=== PATIENT | male | born 1945 | race Caucasian/White ===

== ENCOUNTER 2016-10-23 13:37 | Emergency (ER) | payer MEDICARE, OTHER ==
[2014-05-03 14:03] VITALS: BMI 39.8
[~2016-10-23 13:37] MED LIST: BETAPACE 120 M120 MG PO; GLIPIZIDE10 MG PO; GLUCOPHAGE500 MG PO; HYDROCHLOROTH12.5 M1 PO; PRINIVIL20 MG PO
[2016-10-23 14:15] LABS: BASOPHILS 0.3 % (0-2); EOSINOPHILS 2.6 % (0-7); HEMATOCRIT 48.7 % (42.0-54.0); IMMATURE GRANULOCYTES 0.5 % (0-5); LYMPHOCYTES 19.1 % (15-50); MCH 32.2 pg (26.0-34.0); MCHC 34.9 g/dL (31.0-37.0); MCV 92.2 fL (80.0-100.0); MEAN PLATELET VOLUME 11.5 fL (7.4-10.4); MONOCYTES 7.9 % (2-11); NEUTROPHILS 69.6 % (40-80); PLATELET COUNT 226 10x3/uL (130-400); RBC 5.28 10x6/uL (4.20-6.10); RDW 12.9 % (11.5-14.5); WBC 12.9 10x3/uL (4.8-10.8)
[2016-10-23 14:26] LABS: APTT 30.9 SECONDS (22.8-39.4); INR 0.99 (0.85-1.17); PROTIME 12.9 SECONDS (11.6-15.0)
[2016-10-23 14:32] LABS: ALBUMIN 3.7 g/dL (3.4-5.0); ALKALINE PHOSPHATASE 62 U/L (46-116); ALT (SGPT) 27 U/L (10-68); BILIRUBIN - TOTAL 0.33 mg/dL (0.2-1.3); CALC OSMOLALITY 285 mosm/kg (275-300); CALCIUM 9.2 mg/dL (8.5-10.1); CARBON DIOXIDE 27.1 mmol/L (21.0-32.0); CHLORIDE - SERUM 103 mmol/L (98-107); CREATININE - SERUM 1.4 mg/dL (0.6-1.3); GLUCOSE 216 mg/dL (74-106); PROTEIN - SERUM 7.8 g/dL (6.4-8.2); SODIUM 137 mmol/L (136-145); UREA NITROGEN 27 mg/dL (7-18); eGFR NON AFRICAN AMERICAN 53 mL/min (90-120)
[2016-10-23 14:41] LABS: CREATINE KINASE 60 UL (21-232); PRO BNP 1199 pg/mL (0-125)
[2016-10-23 14:45] LABS: TROPONIN-I < 0.017 ng/mL (0.000-0.060)
[2016-10-23 15:48] LABS: APPEARANCE CLEAR (CLEAR); COLOR YELLOW (YELLOW); GLUCOSE 100 mg/dL (NEGATIVE); LEUKOCYTE ESTERASE NEGATIVE (NEGATIVE); NITRITE NEGATIVE (NEGATIVE); PROTEIN TRACE mg/dL (NEGATIVE)
[2016-10-23 15:49] LABS: BILIRUBIN NEGATIVE (NEGATIVE); KETONE NEGATIVE (NEGATIVE); UROBILINOGEN NORMAL (NORMAL)
[2016-10-23 16:02] LABS: UDS - AMPHET NEGATIVE QUAL (NEGATIVE); UDS - BARB NEGATIVE QUAL (NEGATIVE); UDS - BENZO NEGATIVE QUAL (NEGATIVE); UDS - COCAINE NEGATIVE QUAL (NEGATIVE); UDS - METH NEGATIVE QUAL (NEGATIVE); UDS - OPIATE NEGATIVE QUAL (NEGATIVE); UDS - PCP NEGATIVE QUAL (NEGATIVE); UDS - THC NEGATIVE QUAL (NEGATIVE)
== END 2016-10-23 16:26 | disposition home or self-care (01) ==
LOC: D.ER 13:37
PROVIDERS: Emergency Medicine
DX: I48.92 Unspecified atrial flutter (principal); R53.83 Other fatigue; R06.02 Shortness of breath; R00.1 Bradycardia, unspecified

== ENCOUNTER → 2016-11-07 15:20 | Outpatient (CLI) | payer MEDICARE, OTHER ==
[2014-05-03 14:03] VITALS: BMI 39.8
== END | disposition home or self-care (01) ==
LOC: D.MRI 15:20
DX: M54.16 Radiculopathy, lumbar region (principal)

== ENCOUNTER → 2017-01-03 07:27 | Outpatient (CLI) | payer MEDICARE, OTHER ==
[2014-05-03 14:03] VITALS: BMI 39.8
[~2017-01-03 07:27] MED LIST changes: +ASPIRIN81 MG PO; +DITROPAN X5 MG/BOTTL PO; -HYDROCHLOROTH12.5 M1 PO; +HYDROCHLOROTHIA50 MG PO; +HYDROCODONE-APA1 TAB PO; +IBUPROFEN800 MG PO; +JENTADUETO 2.51 EAC1 PO; +NIACIN500 MG PO; +NORCO 7.5/325 T1 TA1 PO; +NORVASC10 MG PO
== END | disposition home or self-care (01) ==
LOC: D.US 07:27
DX: N19 Unspecified kidney failure (principal)

== ENCOUNTER 2017-01-17 05:33 | Day surgery (SDC) | payer MEDICARE, OTHER ==
[2017-01-16 08:56] LABS: HEMATOCRIT 42.7 % (42.0-54.0); HEMOGLOBIN 14.6 g/dL (13.5-17.5); MCH 31.5 pg (26.0-34.0); MCHC 34.2 g/dL (31.0-37.0); MCV 92.2 fL (80.0-100.0); MEAN PLATELET VOLUME 11.3 fL (7.4-10.4); RBC 4.63 10x6/uL (4.20-6.10); RDW 13.2 % (11.5-14.5); WBC 13.5 10x3/uL (4.8-10.8)
[2017-01-16 09:19] LABS: ANION GAP 16.3 mmol/L (8-16); CALCIUM 9.3 mg/dL (8.5-10.1); CARBON DIOXIDE 22.2 mmol/L (21.0-32.0); CREATININE - SERUM 1.5 mg/dL (0.6-1.3); POTASSIUM - SERUM 4.5 mmol/L (3.5-5.1)
[~2017-01-17 05:33] MED LIST changes: -ASPIRIN81 MG PO; -DITROPAN X5 MG/BOTTL PO; -IBUPROFEN800 MG PO; -NORCO 7.5/325 T1 TA1 PO
[2017-01-17] MEDS ORDERED: ASPIRIN81 MG PO (07:43)
[2017-01-17] MEDS ORDERED: IBUPROFEN800 MG PO (07:43)
[2017-01-17 07:49] VITALS: BP 140/74; BMI 37.3
--- NOTE | 2017-01-17 11:26 | NUR ---
1125 DISCHARGE INSTRUCTIONS COMPLETE. PRESCRIPTION FOR DIFLUCAN GIVEN. PT HAS NO QUESTIONS OR CONCERNS AT THIS TIME. PT ESCORTED OUT BY VOLUNTEER.
--- NOTE | 2017-01-17 11:45 | OP ---
PATIENT NAME: JOY REYES MEDICAL RECORD: [id number] :45 LOCATION:D.[facility] ADMISSION DATE: SURGEON: TARIK RODRIGUEZ MD DATE OF OPERATION: 01/17/2017 SURGEON: Tarik Rodriguez MD ANESTHESIA: MAC by Patrick Evans CRNA PREOPERATIVE DIAGNOSIS: Elevated PSA 8.43. PROCEDURE: Transrectal ultrasound and prostate biopsy. FINDINGS: A 60-gram prostate on prostate sizing. No hypoechoic areas. SPECIMENS: Prostate biopsies. BLOOD LOSS: None. CLINICAL HISTORY: This is a 71-year-old male, who has an elevated PSA of 8.43. There is no family history of prostate cancer. On digital rectal examination, he has an enlarged prostate with a left lateral nodule. He comes today to have a biopsy of his prostate. He is not allergic to any medications. He was given Ancef circulation librarian to the OR. He has also been taking Bactrim at home for prophylaxis and he had an enema to clean up the rectum last night. DESCRIPTION OF PROCEDURE: The patient was given IV sedation. He was then placed into dorsal lithotomy position. The transrectal ultrasound probe was placed into the rectum and we obtained size measurements on the prostate. The prostate size turned out to be 60 grams. I could not discern any hypoechoic areas. Sextant biopsies were obtained left and right apex, mid and base sectors. At each sextant, we took at least 3 cores of tissue. Once this was done, the patient was awakened and brought to the recovery room. I will review the pathology results with him next week. TRANSINT:[id number] Voice Confirmation ID: [id number] DOCUMENT ID: [id number] TARIK RODRIGUEZ MD at 1145 CC: [id number] DICTATION DATE: 01/17/17 1046 NURSE ASSISTANT: 01/17/17 1141 [facility] 01/17/17 [place] [id number]
== END 2017-01-17 11:25 | disposition home or self-care (01) ==
LOC: D.OPS 05:33
PROVIDERS: Anesthesiology
DX: R97.20 Elevated prostate specific antigen [PSA] (principal); I10 Essential (primary) hypertension; I48.91 Unspecified atrial fibrillation; E11.9 Type 2 diabetes mellitus without complications; Z01.812 Encounter for preprocedural laboratory examination

== ENCOUNTER → 2017-01-30 08:58 | Outpatient (CLI) | payer MEDICARE, OTHER ==
[2017-01-17 07:49] VITALS: BMI 37.3
[~2017-01-30 08:58] MED LIST changes: +ASPIRIN81 MG PO; +DITROPAN X5 MG/BOTTL PO; +IBUPROFEN800 MG PO; +NORCO 7.5/325 T1 TA1 PO
== END | disposition home or self-care (01) ==
LOC: D.NM 08:58
DX: C61 Malignant neoplasm of prostate (principal)

== ENCOUNTER 2017-03-29 05:13 | Inpatient (IN) | payer MEDICARE, OTHER ==
[2017-03-28 14:18] LABS: BASOPHILS 0.1 % (0-2); EOSINOPHILS 0 % (0-7); HEMATOCRIT 43.7 % (42.0-54.0); HEMOGLOBIN 14.8 g/dL (13.5-17.5); IMMATURE GRANULOCYTES 0.4 % (0-5); LYMPHOCYTES 13.8 % (15-50); MCH 31.4 pg (26.0-34.0); MCHC 33.9 g/dL (31.0-37.0); MCV 92.8 fL (80.0-100.0); MEAN PLATELET VOLUME 11.2 fL (7.4-10.4); MONOCYTES 4.1 % (2-11); NEUTROPHILS 81.6 % (40-80); PLATELET COUNT 241 10x3/uL (130-400); RBC 4.71 10x6/uL (4.20-6.10); RDW 13.3 % (11.5-14.5); WBC 14.2 10x3/uL (4.8-10.8)
[2017-03-28 14:23] LABS: APTT 27.2 SECONDS (22.8-39.4); INR 1.05 (0.85-1.17); PROTIME 13.3 SECONDS (11.6-15.0)
[2017-03-29] VITALS (12 sets, daily range): BP systolic 93–139; BP diastolic 48–68; Ht 180.3 cm; Wt 113.6 kg
[~2017-03-29] VITALS: Ht 180.3 cm; Wt 113.6 kg
--- NOTE | ~2017-03-29 | OP ---
PATIENT NAME: JOY REYES MEDICAL RECORD: [id number] :45 LOCATION:[facility] ADMISSION DATE:03/29/17 SURGEON: JYOTHI RODRIGUEZ MD DATE OF OPERATION: 03/29/2017 CO-SURGEONS: Dr. Jyothi Rodriguez and Dr. Jyothi Jamil. ANESTHESIA: General anesthesia by Taras Avina CRNA. PREOPERATIVE DIAGNOSIS: Prostate cancer, [place] 3+3 on the right side, PSA 8.43, clinical stage T2b N0 M0. PROCEDURE: Pelvic lymph node biopsy and radical retropubic prostatectomy. FINDINGS: On the lymph nodes, one node on the right side negative for cancer. No nodes were found on the left side. Enlarged prostate. SPECIMENS: Pelvic lymph node, prostate with seminal vesicles and vasa deferentia attached. BLOOD LOSS: 500 mL. OR DURATION: 3 hours. CLINICAL HISTORY: This is a 72-year-old male with an elevated PSA of 8.43. Transrectal ultrasound and prostate biopsy showed a 60-gram prostate with prostate cancer found on the right side, Josi score 3+3 = 6. Clinical stage is T2b. He had a metastatic workup including chest x-ray, bone scan, and CT scan of abdomen and pelvis. Metastatic workup was negative except for an enlarged right pelvic lymph node noted on the CT scan. He does have erectile dysfunction and he has problems with urge urinary incontinence. He is not interested in having radiation treatment and he would like to proceed with a radical retropubic prostatectomy. He had an enema last night to clean out his rectum. He is also cross matched for 2 units of blood in case we need to transfuse him during the surgery. He is not allergic to any medications and he was given ampicillin sulbactam 3 grams IV military education coordinator to the OR. DESCRIPTION OF PROCEDURE: The patient was given induction of general anesthesia while in supine position. The patient is rather large in size, weighing 260 pounds. We therefore had to raise the kidney rest in order to extend the space between the umbilicus and the symphysis pubis. The patient was also placed in a mild degree of Trendelenburg. He was then prepped and draped. A 16-Greenlandic Hunter catheter was placed into the bladder and put to bag drainage. Normally, I would make a 3-inch long incision. In this case, I had to make a 4-inch long incision to be sure that we would be able to have enough room to work in the deep pelvis. The incision was in the anterior abdominal wall midline infraumbilically. It extended from the symphysis pubis upwards toward the umbilicus. The overall length was 4 inches. We then entered through the midline of the rectus fascia into the space of Retzius. We dissected through the transversalis fascia and freed the peritoneal surface away from the lateral pelvic thompson. The Bookwalter retractor was then placed. The retractor blades were padded using moistened lap sponges. A bladder blade was used to pull the bladder back using the Hunter catheter balloon. Our first order of business was to perform the pelvic lymph node biopsy. The margins of the pelvic lymph node sampling area include anteriorly the external iliac vein. Inferiorly the OPERATIVE REPORT [id number] JOY REYES DON circumflex iliac vein. Posteriorly the obturator nerve. Cranially the margin is the bifurcation of the common iliac vein into the external and internal iliac veins. Within this area, he actually had very scant tissue on the left side. We took what we could and sent it to pathology. On the right side, there was a bit more tissue and that was sent. Frozen sections were obtained. Pathology reported that only one lymph node was found on the right side and it was negative for cancer. No lymph nodes were found on the left side. With that report, we proceeded with the radical prostatectomy. The fat surrounding the prostate was removed using the cautery and Iranian forceps. We pulled off the fat as it was being cauterized to prevent bleeding. Back bleeding sutures of 2-0 Vicryl were placed on the superior prosatic surface near the bladder neck. Hsoebf-cf-nexhko were placed here and tied down. This would prevent bleeding from the dorsal venous complex from the bladder area. We then made a small incision using the Bovie on the endopelvic fascia just lateral to the prostate, on either side. We then bluntly dissected using a finger to define the plane between the lateral surface of the distal prostate and the pelvic side wall. In this way, we were able to palpate the urethra at the apex of the prostate from either side. We could clearly define the puboprostatic ligaments. Because of the patient's large size, we would need to free the ligaments in order to allow the prostate to be mobile to allow us to have better ligation of the dorsal venous complex. Therefore, Metzenbaum scissors were placed hugging the undersurface of the pubic bone and the puboprostatic ligaments were taken down sharply with the Metzenbaum scissors. Once this was done and both sides were completely free, we encountered vigorous venous bleeding from the dorsal venous complex. Jonathan clamp was then placed in the plane between the urethra and the undersurface of the dorsal venous complex. We placed 0 silk ties here and ligated the veins. Two such ties were placed. This controlled the bleeding significantly. We then cut through the dorsal venous complex using the Bovie. This exposed the urethra and the apex of the prostate. Using a #15 blade, the urethral anterior surface was divided and we cut lateral to the Hunter catheter. The catheter could be seen through the opening of the urethra. A Constanza clamp was placed on the Hunter catheter and the catheter was cut where it exited the penile urethral meatus. The catheter was then pulled entirely through the opened urethra into the pelvic dissection space. Another Constanza clamp was placed on the Hunter catheter and we used this for traction on the apex of the prostate. Finally, we placed the Jonathan clamp in the plane between the posterior surface of the urethra just anterior to the rectum. With this plane defined, we used the 15 blade to finally transect the urethra entirely. The rectourethralis muscle was then divided using Metzenbaum scissors. We could then use finger blunt dissection to define the plane between the anterior surface of the rectum and the posterior surface of the prostate. This left the lateral pedicles isolated on each side. We were then able to put a right-angle clamp around the lateral pedicles and clipped with a large clip applicator underneath the clamp. The pedicles were divided using Metzenbaum scissors or a #15 blade on top of the clip applicator. We did not use any Bovie in this area as we did not want to injure his cavernosal nerves. Finally, the entire lateral pedicles of the prostate on both sides had been completely isolated. The prostate was only held on by the bladder neck, seminal vesicles, and vasa deferentia. Denonvilliers fascia was incised overlying the seminal vesicles and vasa deferentia. We dissected the seminal vesicles down to the apex where a clip was placed on the pedicle. The seminal vesicle was divided at its apex. This was done on each side. The vasa deferentia were isolated and dissected proximally and then clipped and divided distally. Finally, we OPERATIVE REPORT [id number] JOY REYES performed a bladder neck sparing incision using a Bovie in the plane between the prostate and the bladder. Once we got into the bladder mucosa, we used Metzenbaum scissors to complete the dissection. The prostate specimen was now completely free and it was sent to pathology in formalin. We placed a Mari clamp on either side of the opening of the bladder neck and looked inside and verified that we could see the ureteral orifices on each side. We could see jets of urine coming out of them. We then everted the bladder mucosa using simple interrupted 4-0 Vicryl sutures. The mucosa was brought out over the cut edge of the bladder neck to the serosal surface and sutured down. Because the bladder neck was rather large, we did perform a tennis racquet type narrowing of the bladder neck. Starting from posteriorly using a 2-0 Vicryl, we used a running stitch to narrow down the bladder neck. The final bladder neck opening was about 1 cm in diameter. At this point, we were ready to place our anastomotic sutures. The Hunter catheter balloon was deflated and the remnant of the Hunter catheter was discarded. We placed a male sound into the penile urethra, 26-Greenlandic. Five anastomotic sutures were placed. These are of 2-0 Polyglytone. They were placed with Capio RP suture snaker tractor driver. The sutures were placed at 12 o'clock, 2 o'clock, 5 o'clock, 7 o'clock, and 10 o'clock positions. Once the urethral sutures were placed, we then inserted a 22-Greenlandic 3-way silicone catheter into the urethra. This was placed into the bladder and the balloon was left deflated. The sutures were then placed in their respective positions through the bladder neck from inside out. In this way, when we tied the suture down the knot would be on the outside of the anastomosis. The patient's bed was leveled. The kidney rest was brought down. The bladder neck was brought down gently to the urethral stump by gentle traction on the Hunter catheter. The Hunter catheter had 10 mL of sterile water placed in it to inflate the balloon. The bladder blade from the Bookwalter was removed. With the tissues in apposition, the anastomotic sutures were tied down successively starting from anteriorly and going around laterally to finally the posterior ones. We then tested the water tightness of our anastomosis by irrigating the catheter and we found that there was no leakage. The Hunter catheter was then put to bag drainage. A #10 flat Fransisco-Blake drain was placed through the left lower quadrant of the abdomen. The drain was sutured using a 2-0 nylon stitch. The drain was cut shorter and placed in the area over the distal bladder, but not at the level of the anastomosis. Sponge and instrument counts were then obtained. These were correct. Fascial closure was using running 0 looped PDS to reapproximate the rectus fascia. The skin was closed with tiera after irrigating out the wound with normal saline. Telfa and then sterile dressing was applied. The BELINDA drain was put to bulb suction drainage. The patient will be admitted to hospital for pain control. Once his ileus resolves and he is eating normally and having bowel movements, he can be discharged home with the indwelling Hunter catheter and the BELINDA drain. TRANSINT:[id number] Voice Confirmation ID: [id number] DOCUMENT ID: [id number] JYOTHI RODRIGUEZ MD at 0920 CC: [id number] DICTATION DATE: 03/29/17 1126 METAL MINER BLASTING: 03/29/[address] [facility] [address] [place] [address]
--- NOTE | ~2017-03-29 | OP ---
PATIENT NAME: JOY REYES MEDICAL RECORD: [id number] :45 LOCATION:[facility] ADMISSION DATE:03/29/17 SURGEON: JYOTHI MARRERO MD DATE OF OPERATION: 03/29/2017 CO-SURGEONS: Dr. Jyothi Rodriguez and Dr. Jyothi Marrero. OPERATIVE DIAGNOSIS: Prostate cancer. PROCEDURE: Radical retropubic prostatectomy, nerve sparing with bilateral pelvic lymph node dissections. Due to the complexity of this procedure, it was necessary to have 2 attending surgeons present during the procedure. Please refer to Dr. Rodriguez's note. DESCRIPTION OF THE PROCEDURE: The patient underwent general anesthesia. He was placed in supine position. He was prepped and draped. A 16-Spanish Hunter catheter was inserted into the bladder and put to a drainage bag. A small infraumbilical incision was accomplished in the midline. It extended from the pubic symphysis cranially. Going through the midline of the rectus fascia, we entered the space of Retzius in the retroperitoneal space. Retractors were placed. A bladder blade was used to hold down the bladder by holding the Hunter catheter balloon in cephalad orientation. We then performed the pelvic lymph node dissection. I did the pelvic lymph node dissection on the contralateral side. The margins of the pelvic lymph node dissection were anteriorly the external iliac vein, inferiorly the circumflex iliac vein, cranially the bifurcation of the external and internal iliac veins from the common iliac vein and posteriorly the obturator nerve, which was visualized and was retracted for protection. A richi harvest was undertaken and metallic clips were used to ligate the lymphatic vessels in order to help prevent a lymphocele or lymphatic drainage. We then wiped the fat from the endopelvic fasciae with Kitner dissectors. An incision was accomplished in the endopelvic fascia. I did this on the contralateral side. Utilizing finger, I was able to bluntly dissect the pelvic floor muscles away from the lateral surface of the prostate up to the apex of the prostate. We could then palpate the Hunter catheter in the urethra at the apex. Most of my dissection was on the contralateral side of the table as was Dr. Rodriguez's. We placed a back bleeding suture of 2-0 silk on the dorsal vein complex near the bladder neck. I then used Guamanian forceps and cauterized away of the surrounding periprostatic fat on the dorsal surface. This allowed us to get a good view of the dorsal venous complex. We took down the puboprostatic ligaments in order to get a good visibility of the apex of the prostate. This was done sharply. We hugged the undersurface of the pubic bone. The distal portion of the puboprostatic ligament was brought down by blunt finger dissection. We were then able to get a Jonathan clamp between the anterior surface of the urethra and the posterior surface of the dorsal venous complex. A 0 silk suture was then placed here and the dorsal venous complex was ligated. The dorsal venous complex was divided. The Jonathan clamp was then used to OPERATIVE REPORT [id number] JOY REYES DON enter the plane between the posterior urethra anterior to the rectum. This was used to pull the urethra anteriorly. We were able to identify the apex of the prostate gland. Utilizing a scalpel, we were able to transect the urethra just distal to the apex of the prostate. The Hunter catheter was brought out through the urethral incision, held with a Constanza clamp. We used this for traction to pull up the apex of the prostate and urethra. The posterior wall of the urethra was transected. A sharp dissection and blunt dissection was performed to separate the rectourethralis muscle from the anterior wall of the rectum. At no time was there any apparent full thickness injury to the rectal wall. The lateral pedicles of the prostate were divided. We then divided Denonvilliers' fascia. We were able to free up the seminal vesicles and the vas deferentia. The seminal vesicles were dissected free up to the apex, at which point they were clipped at the apex and divided distal to the clip. The vas deferens was identified on either side, and ligated and divided. The bladder neck was incised with electrocautery. The prostate gland was removed. We everted the bladder mucosa with 4-0 Vicryl sutures. I made sure that the bladder neck was of an appropriate size. Polyglytone 2-0 sutures were placed at 5 positions around the urethra. These were then sutured around the bladder neck. This was with the Hunter catheter in the bladder neck. We then inflated the Hunter catheter balloon. We then tied down on all 5 sutures ensuring that the knots were outside of the lumen of the urethra. We checked for integrity of the anastomosis by injecting normal saline. Hemostatic agent was then applied distally and posteriorly to the distal bladder near the anastomosis. A flat closed suctioned drain was brought out and sutured skin with a nylon. There was no further bleeding. The midline fascia was closed with a running looped #0 PDS. Metallic clips were used to close the skin. TRANSINT:[id number] Voice Confirmation ID: [id number] DOCUMENT ID: [id number] JYOTHI MARRERO MD at 1131 CC: JYOTHI RODRIGUEZ MD [id number] DICTATION DATE: 03/29/17 1215 SWITCH TECHNICIAN: 03/29/17 1533 DIS IN 03/31/17 [place] [id number] [place] [id number]
[~2017-03-29 05:13] MED LIST changes: -DITROPAN X5 MG/BOTTL PO; -NORCO 7.5/325 T1 TA1 PO
[2017-03-29 07:00] LABS: ANION GAP 15.5 mmol/L (8-16); CALCIUM 9.4 mg/dL (8.5-10.1); CARBON DIOXIDE 24.8 mmol/L (21.0-32.0); CREATININE - SERUM 1.2 mg/dL (0.6-1.3); POTASSIUM - SERUM 4.3 mmol/L (3.5-5.1)
[2017-03-30] VITALS: BP 118/60
[2017-03-30 08:16] VITALS: BP 142/89
[2017-03-30 11:39] LABS: BASOPHILS 0.2 % (0-2); EOSINOPHILS 0.4 % (0-7); HEMATOCRIT 35.6 % (42.0-54.0); HEMOGLOBIN 11.5 g/dL (13.5-17.5); IMMATURE GRANULOCYTES 0.5 % (0-5); LYMPHOCYTES 15.4 % (15-50); MCH 30.9 pg (26.0-34.0); MCHC 32.3 g/dL (31.0-37.0); MCV 95.7 fL (80.0-100.0); MEAN PLATELET VOLUME 11.7 fL (7.4-10.4); MONOCYTES 12.4 % (2-11); NEUTROPHILS 71.1 % (40-80); PLATELET COUNT 183 10x3/uL (130-400); RBC 3.72 10x6/uL (4.20-6.10); RDW 13.7 % (11.5-14.5); WBC 13.1 10x3/uL (4.8-10.8)
[2017-03-30 12:22] VITALS: BP 142/61
[2017-03-30 16:13] VITALS: BP 142/62
[2017-03-30 20:00] VITALS: BP 128/65
[2017-03-30 23:53] VITALS: BP 135/59
[2017-03-31 04:00] VITALS: BP 151/60
[2017-03-31 08:18] VITALS: BP 132/56
[2017-03-31 12:18] VITALS: BP 113/57
[2017-03-31] MEDS ORDERED: NORCO 7.5/325 T1 TA1 PO (15:29)
[2017-03-31] MEDS ORDERED: DITROPAN X5 MG/BOTTL PO (15:30)
== END 2017-03-31 16:20 | disposition home or self-care (01) | DRG 707 ==
LOC: D.MS 05:13 → D.SDCHOLD 05:13 → D.MS 12:32
PROVIDERS: Anesthesiology; Urology
PROC: 0VTQ0ZZ Resection of Bilateral Vas Deferens, Open Approach (ICD-10-PCS; 2017-03-29)
PROC: 0VT00ZZ Resection of Prostate, Open Approach (ICD-10-PCS; principal; 2017-03-29 07:30)
PROC: 07TC0ZZ Resection of Pelvis Lymphatic, Open Approach (ICD-10-PCS; 2017-03-29 07:30)
PROC: 0VT30ZZ Resection of Bilateral Seminal Vesicles, Open Approach (ICD-10-PCS; 2017-03-29 07:30)
DX: C61 Malignant neoplasm of prostate (principal); I48.92 Unspecified atrial flutter; N17.9 Acute kidney failure, unspecified; D62 Acute posthemorrhagic anemia; I10 Essential (primary) hypertension; E11.9 Type 2 diabetes mellitus without complications; E66.9 Obesity, unspecified; Z68.34 Body mass index [BMI] 34.0-34.9, adult

== ENCOUNTER 2017-04-04 07:11 | Emergency (ER) | payer MEDICARE, OTHER ==
[2017-03-29 19:06] VITALS: BMI 34.9
[~2017-04-04 07:11] MED LIST changes: +DITROPAN X5 MG/BOTTL PO; +NORCO 7.5/325 T1 TA1 PO
== END 2017-04-04 08:34 | disposition home or self-care (01) ==
LOC: D.ER 07:11
DX: T83.9XXA Unspecified complication of genitourinary prosthetic device, implant and graft, initial encounter (principal)

== ENCOUNTER → 2017-05-14 09:07 | Outpatient (CLI) | payer MEDICARE, OTHER ==
[2017-03-29 19:06] VITALS: BMI 34.9
== END | disposition home or self-care (01) ==
LOC: D.LAB 09:07
DX: C61 Malignant neoplasm of prostate (principal)

== ENCOUNTER 2017-06-30 05:39 | Inpatient (IN) | payer MEDICARE, OTHER ==
[~2017-06-30] VITALS: Ht 180.3 cm; Wt 110.6 kg
--- NOTE | ~2017-06-30 | EC ---
PATIENT:JOY REYES DATE OF SERVICE: 06/30/17 SEX: M MEDICAL RECORD: [id number] DATE OF : 45 LOCATION:[facility] AGE OF PATIENT: 72 ADMISSION DATE: 06/30/17 REFERRING PHYSICIAN: INTERPRETING PHYSICIAN: YOKASTA GREEN MD ECHOCARDIOGRAM REPORT ECHO CHARGES 4 ECHO COMPLETE Date: 06/30 CLINICAL DIAGNOSIS: CVA VS. TIA ECHOCARDIOGRAPHIC MEASUREMENTS (adult normal given) AC root (d.<3.7cm) 3.2 cm LV Septum d (<1.2 cm> 1.7 cm Valve Excursion 2.0 cm LV Septum (systole) 2.2 cm Left Atria (s.<4.0cm> 4.5 cm LVPW d(<1.2cm) 1.5 cm RV (d.<2.3cm) 2.5 cm LVPW (sytole) 2.1 cm LV diastole(<5.6CM) 6.6 cm MV E-F(>70mm/sec) cm LV systole 4.2 cm LVOT Diameter 1.8 cm MV exc.(>10mm) cm Est.ejection fraction (50-75%) % DOPPLER: LVIT cm/sec A 52.0 cm/sec E 69.0 cm/sec LA cm/sec RVSP 22.0 mmHg LVOT 82.0 cm/sec AOP1/2T m/s Asc. Ao 119 cm/sec RVOT 63.0 cm/sec RA cm/sec PA 98.0 cm/sec AV Gradient Peak 5.7 mmHg AV Mean 3.0 mmHg AV Area 2.1 cm MV Gradient Peak 3.3 mmHg MV Mean 1.0 mmHg MV Area cm COMMENTS: Green Chainer: Migue CEEOE Assistant Professor Of English: 3 Dr. Mariscal TAPE# PACS Pericardial Effusion N DATE OF SERVICE: Adequate 2D, color flow, spectral Doppler, and M-Mode. LVH is present. LV internal dimensions are normal. Wall motion shows mild hypokinesis. Overall function lower limits of normal, mildly reduced. Estimated EF of 45% to 50%. Aortic valve is tricuspid. No evidence of stenosis on Doppler interrogation. Left atrium is dilated 4.5 cm. Mitral valve shows no prolapse. Mild MR. Right-sided chamber size is normal. Trace TR. TRANSINT:[id number] Voice Confirmation ID: [id number] DOCUMENT ID: [id number] ECHOCARDIOGRAM REPORT [id number] JOY REYES GREGORY A MD at 1337 CC: [id number] DICTATION DATE: 07/01/17 1042 GEAR GENERATOR SET UP OPERATOR: 07/01/17 1222 ADM IN [facility] [address] [place] [id number]
[2017-06-30 06:36] LABS: BASOPHILS 0.2 % (0-2); EOSINOPHILS 3.5 % (0-7); HEMATOCRIT 44.5 % (42.0-54.0); HEMOGLOBIN 15.1 g/dL (13.5-17.5); IMMATURE GRANULOCYTES 0.2 % (0-5); LYMPHOCYTES 29.6 % (15-50); MCH 30.4 pg (26.0-34.0); MCHC 33.9 g/dL (31.0-37.0); MCV 89.7 fL (80.0-100.0); MEAN PLATELET VOLUME 11.1 fL (7.4-10.4); MONOCYTES 12.8 % (2-11); NEUTROPHILS 53.7 % (40-80); PLATELET COUNT 195 10x3/uL (130-400); RBC 4.96 10x6/uL (4.20-6.10); RDW 13.7 % (11.5-14.5); WBC 5.4 10x3/uL (4.8-10.8)
[2017-06-30 06:44] LABS: APPEARANCE CLEAR (CLEAR); BILIRUBIN NEGATIVE (NEGATIVE); COLOR YELLOW (YELLOW); GLUCOSE NEGATIVE (NEGATIVE); KETONE SMALL mg/dL (NEGATIVE); NITRITE NEGATIVE (NEGATIVE); PROTEIN TRACE mg/dL (NEGATIVE); UROBILINOGEN NORMAL (NORMAL)
[2017-06-30 06:45] LABS: INR 1.01 (0.85-1.17); PROTIME 12.9 SECONDS (11.6-15.0)
[2017-06-30 06:49] LABS: APTT 28.3 SECONDS (22.8-39.4)
[2017-06-30 06:50] LABS: ALBUMIN 3.4 g/dL (3.4-5.0); ALKALINE PHOSPHATASE 68 U/L (46-116); ALT (SGPT) 20 U/L (10-68); BILIRUBIN - TOTAL 0.25 mg/dL (0.2-1.3); CALC OSMOLALITY 284 mosm/kg (275-300); CALCIUM 8.9 mg/dL (8.5-10.1); CARBON DIOXIDE 23.1 mmol/L (21.0-32.0); CHLORIDE - SERUM 107 mmol/L (98-107); CREATININE - SERUM 1.1 mg/dL (0.6-1.3); POTASSIUM - SERUM 4.1 mmol/L (3.5-5.1); PROTEIN - SERUM 7.8 g/dL (6.4-8.2); SODIUM 141 mmol/L (136-145); UREA NITROGEN 30 mg/dL (7-18); eGFR NON AFRICAN AMERICAN 70 mL/min (90-120)
[2017-06-30 06:51] LABS: GLUCOSE 69 mg/dL (74-106)
[2017-06-30 06:53] LABS: CREATINE KINASE 65 UL (21-232)
[2017-06-30 06:54] LABS: BACTERIA FEW /hpf (NONE SEEN); EPITHELIAL CELLS RARE /hpf (0-5); HYALINE CAST RARE /lpf (NONE SEEN); RED CELLS - URINE RARE /hpf (0-5); WHITE CELLS - URINE RARE /hpf (0-5)
[2017-06-30 06:56] LABS: TROPONIN-I < 0.017 ng/mL (0.000-0.060)
[2017-06-30 09:07] VITALS: BP 166/77
[2017-06-30 09:19] VITALS: Ht 180.3 cm; Wt 110.6 kg
[2017-06-30 16:19] VITALS: BP 142/70
[2017-06-30 20:00] VITALS: BP 149/82
[2017-07-01] VITALS: BP 155/89
[2017-07-01 04:00] VITALS: BP 174/79
[2017-07-01 06:05] LABS: BASOPHILS 0.6 % (0-2); EOSINOPHILS 4.3 % (0-7); HEMATOCRIT 42.4 % (42.0-54.0); HEMOGLOBIN 14.3 g/dL (13.5-17.5); IMMATURE GRANULOCYTES 0.3 % (0-5); LYMPHOCYTES 48.3 % (15-50); MCH 30.2 pg (26.0-34.0); MCHC 33.7 g/dL (31.0-37.0); MCV 89.5 fL (80.0-100.0); MEAN PLATELET VOLUME 11.4 fL (7.4-10.4); MONOCYTES 13.6 % (2-11); NEUTROPHILS 32.9 % (40-80); PLATELET COUNT 201 10x3/uL (130-400); RBC 4.74 10x6/uL (4.20-6.10); RDW 13.7 % (11.5-14.5); WBC 6.2 10x3/uL (4.8-10.8)
[2017-07-01 06:43] LABS: BILIRUBIN - TOTAL 0.34 mg/dL (0.2-1.3); CALCIUM 8.2 mg/dL (8.5-10.1); CARBON DIOXIDE 23.9 mmol/L (21.0-32.0); CHOL - HDL RATIO 5.5 ratio (2.3-4.9); CREATININE - SERUM 1.1 mg/dL (0.6-1.3); LDL-HDL RATIO 3.5 ratio (1.5-3.5); PROTEIN - SERUM 6.9 g/dL (6.4-8.2)
[2017-07-01 06:45] LABS: ANION GAP 13.4 mmol/L (8-16); POTASSIUM - SERUM 3.3 mmol/L (3.5-5.1)
[2017-07-01 08:21] VITALS: BP 157/79
[2017-07-01 12:09] VITALS: BP 147/69
[2017-07-01 15:32] VITALS: BP 140/64
[2017-07-01 22:20] VITALS: BP 150/75
[2017-07-02 01:22] VITALS: BP 154/78
[2017-07-02 04:45] VITALS: BP 135/68
[2017-07-02 07:14] LABS: BASOPHILS 0.6 % (0-2); EOSINOPHILS 3.9 % (0-7); HEMATOCRIT 43.4 % (42.0-54.0); HEMOGLOBIN 14.5 g/dL (13.5-17.5); IMMATURE GRANULOCYTES 0.4 % (0-5); LYMPHOCYTES 44.2 % (15-50); MCHC 33.4 g/dL (31.0-37.0); MCV 89.7 fL (80.0-100.0); MEAN PLATELET VOLUME 11.3 fL (7.4-10.4); MONOCYTES 10.5 % (2-11); NEUTROPHILS 40.4 % (40-80); PLATELET COUNT 211 10x3/uL (130-400); RBC 4.84 10x6/uL (4.20-6.10); RDW 13.6 % (11.5-14.5); WBC 7.2 10x3/uL (4.8-10.8)
[2017-07-02 07:30] LABS: INR 1.06 (0.85-1.17); PROTIME 13.4 SECONDS (11.6-15.0)
[2017-07-02 07:43] LABS: ALBUMIN 3.2 g/dL (3.4-5.0); ANION GAP 14.2 mmol/L (8-16); BILIRUBIN - TOTAL 0.34 mg/dL (0.2-1.3); CALCIUM 8.9 mg/dL (8.5-10.1); CARBON DIOXIDE 25.4 mmol/L (21.0-32.0); POTASSIUM - SERUM 3.6 mmol/L (3.5-5.1); PROTEIN - SERUM 7.1 g/dL (6.4-8.2)
[2017-07-02 07:45] LABS: CREATININE - SERUM 1.4 mg/dL (0.6-1.3)
[2017-07-02 10:38] VITALS: BP 140/79
[2017-07-02 15:04] VITALS: BP 144/77
[2017-07-02] MEDS ORDERED: ASPIRIN81 MG PO (16:20)
[2017-07-02 19:08] VITALS: BP 130/65
[2017-07-02 20:24] VITALS: BP 150/88
== END 2017-07-02 18:06 | disposition home or self-care (01) | DRG 65 ==
LOC: D.ER 05:39 → D.MS 07:07
PROVIDERS: Emergency Medicine; Family Medicine; Internal Medicine Nephrology
DX: I63.9 Cerebral infarction, unspecified (principal); G45.9 Transient cerebral ischemic attack, unspecified; I48.92 Unspecified atrial flutter; N17.9 Acute kidney failure, unspecified; R47.1 Dysarthria and anarthria; R53.1 Weakness; I48.91 Unspecified atrial fibrillation; I25.10 Atherosclerotic heart disease of native coronary artery without angina pectoris; E11.9 Type 2 diabetes mellitus without complications; I10 Essential (primary) hypertension; E87.6 Hypokalemia; R40.2412 Glasgow coma scale score 13-15, at arrival to emergency department; I67.82 Cerebral ischemia

== ENCOUNTER → 2018-08-22 08:17 | Outpatient (CLI) | payer MEDICARE, OTHER ==
[2017-06-30 09:19] VITALS: BMI 33.5
== END | disposition home or self-care (01) ==
LOC: D.HCCARDIO 08:17
PROVIDERS: ATTEND Internal Medicine Cardiovascular Disease
DX: I25.10 Atherosclerotic heart disease of native coronary artery without angina pectoris (principal)

== ENCOUNTER → 2019-02-24 08:01 | Outpatient (CLI) | payer MEDICARE, OTHER ==
[2017-06-30 09:19] VITALS: BMI 33.5
== END | disposition home or self-care (01) ==
LOC: D.LAB 08:01
PROVIDERS: ATTEND Urology
DX: C61 Malignant neoplasm of prostate (principal)

== ENCOUNTER 2019-03-26 08:00 | Day surgery (SDC) | payer MEDICARE, OTHER ==
[2019-03-25 09:16] LABS: BASOPHILS 0.5 % (0-2); EOSINOPHILS 5.7 % (0-7); HEMATOCRIT 46.1 % (42.0-54.0); HEMOGLOBIN 15.4 g/dL (13.5-17.5); IMMATURE GRANULOCYTES 0.5 % (0-5); LYMPHOCYTES 28.4 % (15-50); MCH 31.1 pg (26.0-34.0); MCHC 33.4 g/dL (31.0-37.0); MCV 93.1 fL (80.0-100.0); MONOCYTES 7.7 % (2-11); NEUTROPHILS 57.2 % (40-80); RBC 4.95 10x6/uL (4.20-6.10); RDW 13.1 % (11.5-14.5); WBC 9.6 10x3/uL (4.8-10.8)
[2019-03-25 09:19] LABS: PLATELET COUNT 256 10x3/uL (130-400)
[2019-03-25 09:20] LABS: ANION GAP 10.9 mmol/L (8-16); CALCIUM 9.5 mg/dL (8.5-10.1); CARBON DIOXIDE 30.7 mmol/L (21.0-32.0); CREATININE - SERUM 1.3 mg/dL (0.6-1.3); POTASSIUM - SERUM 4.6 mmol/L (3.5-5.1)
[2019-03-25 09:28] LABS: APTT 28.3 SECONDS (22.8-39.4)
[2019-03-25 09:32] LABS: INR 0.92 (0.85-1.17); PROTIME 12.3 SECONDS (11.6-15.0)
[~2019-03-26] VITALS: Ht 180.3 cm; Wt 101.2 kg
[~2019-03-26 08:00] MED LIST changes: +GLUCOPHAGE1000 MG PO
[2019-03-26 09:33] VITALS: BP 151/69; Ht 180.3 cm; Wt 101.2 kg
--- NOTE | 2019-03-26 16:17 | NUR ---
1600 IV REMOVED AND INSTRUCTIONS GIVEN FOR CATHETER CARE, URINE CLEARING AND PAIN EASING SOME
--- NOTE | 2019-03-26 19:00 | OP ---
PATIENT NAME: JOY REYES MEDICAL RECORD: [id number] :45 LOCATION:D.OPS ADMISSION DATE: SURGEON: JYOTHI RODRIGUEZ MD DATE OF OPERATION: 03/26/2019 SURGEON: Jyothi Rodriguez MD ANESTHESIA: General anesthesia by Patrick Evans CRNA. DIAGNOSES: Male stress urinary incontinence, post-radical prostatectomy for prostate cancer. PROCEDURE: Excision of fibroepithelial polyps, artificial urinary sphincter insertion. A 3.5 cm cuff with 61-70 cm of water pressure balloon. FINDINGS: Fibroepithelial polyp in the perineum, in the left medial thigh. ESTIMATED BLOOD LOSS: None. CLINICAL HISTORY: This is a 74-year-old male who had prostate cancer stage T2c N0 M0, treated with radical prostatectomy on 03/29/2017. He has ongoing issues with stress urinary incontinence. He also has some degree of urgency, which was treated with Myrbetriq 50 mg. He is now coming to have an artificial urinary sphincter inserted for urinary control. HE IS ALLERGIC TO AUGMENTIN. He was given Levaquin IV airport operations specialist to the OR. DESCRIPTION OF PROCEDURE: The patient was given induction of general anesthesia. He was then placed into the lithotomy position and prepped and draped. A 16-[place] Hunter catheter was placed into the bladder and put to bag drainage. The patient has multiple fibroepithelial polyp in the perineum and in the left medial thigh region. There are a few that are overlying the perineum, where I needed to go make my incision. These were removed using a #15 blade. On the possibility that these may actually out to be genital warts, the instruments used to remove these polyps were set aside and not used again during the surgery. The urethra could be palpated through the skin by feeling for the indwelling Hunter catheter. A cm long incision was made in the skin, in the midline, along the median rhaphe of the scrotum where the urethra was palpated to curve into the undersurface of the pubic bone. We went down through Cintia's fascia and then found the bulbospongiosus muscle. This was incised in the midline using cautery. With blunt dissection, I was able to free most of the urethra laterally. Following the urethra was tented by pulling it away from the pubic bone using the fingers of left hand. Metzenbaum scissors were used to dissect the attachments deep to the urethra. A right angle clamp was then placed to enter the space and dissect the remaining attachments to make a clear passage space for our urethral cuff. The sizing tape was then brought around the back of the urethra with the right angle clamp. The circumference of the urethra by the size and tape was 3.5 cm. We used an appropriately sized cuff. This was placed around the urethra. Suprapubically, on to the patient's right side, a 1.5 cm incision transversely was made just above the symphysis pubis. A Constanza clamp was used to perforate the rectus fascia and entered the space of Retzius. Blunt finger dissection was used to create a pocket for the pressure regulating balloon. The balloon had 23 mL of normal saline filled in it and held in using a rubber shod clamp. This balloon was inserted into the retropubic pocket. Finally, an empty sponge stick OPERATIVE REPORT [id number] JOY REYES was used to dissect from the balloon pocket site down into the right hemiscrotum. The pump was placed on the empty sponge stick jaws and placed down into the right hemiscrotum. The deactivation button faces laterally. The pump was placed very superficial in the scrotal skin. At this point, a tonsil clamp was used to bring the tubing from the cuff up through into the right lower quadrant incision where the pressure regulating balloon was inserted. By matching the designs and patterns on tubings, the yellow tubing was connected to the yellow tubing and the tubing of the striations was connected to the striations. Quick connects were used to make the connections. Once the connections were made, the pump was used once and then allowed to refill about 3/4 away and then the deactivation button was pushed down to keep the sphincter open. I should note that prior to placing the cuff, we did inject methylene blue adjacent to the catheter using large bore blunt tipped needle. The urethral dissection area was packed with a Ray-Nat sponge. When the sponge was removed, we could see no leakage of methylene blue indicating that the urethra was intact. At this point, the wounds were irrigated out using normal saline with antibiotic solution. The right lower quadrant incision was closed in 2 layers. The subcutaneous fat was closed using 3-0 Vicryl simple interrupted sutures. A 4-0 Monocryl was then used in running subcuticular fashion to close the skin. A Dermabond dressing was also applied to the incision. On the perineum, the Cintia fascia was reapproximated using 4-0 Vicryl. The skin was then reapproximated using simple interrupted 4-0 Monocryl. The patient will keep his Hunter catheter into bag drainage. I will see him in followup in 2 weeks' time to check on wound healing. TRANSINT:[id number] Voice Confirmation ID: [id number] DOCUMENT ID: [id number] JYOTHI RODRIGUEZ MD at 1900 CC: [id number] DICTATION DATE: 03/26/19 1427 ADULT BASIC EDUCATION INSTRUCTOR: 03/26/19 1555 [facility] 03/26/19 [facility] [address] [place] [address]
== END 2019-03-26 16:10 | disposition home or self-care (01) ==
LOC: D.OPS 08:00 → D.PAN 08:20 → D.OPS 08:30 → D.PAN 08:50 → D.OPS 10:30 → D.PAN 11:15 → D.OPS 16:10
PROVIDERS: Anesthesiology; ATTEND Urology
DX: N39.41 Urge incontinence (principal); Z90.79 Acquired absence of other genital organ(s); I10 Essential (primary) hypertension; I48.92 Unspecified atrial flutter; I25.10 Atherosclerotic heart disease of native coronary artery without angina pectoris; E11.9 Type 2 diabetes mellitus without complications; Z79.84 Long term (current) use of oral hypoglycemic drugs; Z85.46 Personal history of malignant neoplasm of prostate

== ENCOUNTER → 2019-09-14 09:12 | Outpatient (CLI) | payer MEDICARE, OTHER ==
[2019-03-26 09:33] VITALS: BMI 31.1
== END | disposition home or self-care (01) ==
LOC: D.HCCECHO 08:30
PROVIDERS: ATTEND Internal Medicine Cardiovascular Disease
DX: I25.10 Atherosclerotic heart disease of native coronary artery without angina pectoris (principal)

== ENCOUNTER 2020-08-17 19:04 | Inpatient (IN) | payer MEDICARE, OTHER ==
[~2020-08-17] VITALS: Ht 180.3 cm; Wt 102.3 kg
[2020-08-17 20:56] LABS: APTT 36.4 SECONDS (22.8-39.4); INR 1.18 (0.85-1.17); PROTIME 13.9 SECONDS (11.6-15.0)
[2020-08-17 20:57] LABS: D-DIMER-QUANTITATIVE 0.53 ug/mLFEU (0.20-0.54)
--- NOTE | 2020-08-17 21:14 | NUR ---
PT IV ZITHROMAX FINISHED
[2020-08-17 22:04] VITALS: BP 146/76
[2020-08-17 23:04] VITALS: BP 153/86
[2020-08-18] VITALS (9 sets, daily range): BP systolic 115–180; BP diastolic 43–66; Ht 180.3 cm; Wt 102.3 kg
[2020-08-18 01:56] LABS: CKMB 0.5 U/L (0.0-3.6); CREATINE KINASE 65 UL (21-232)
--- NOTE | 2020-08-18 02:00 | NUR ---
REPORT RECEIVED. PT A&O, UP IN BED. NO S/S OF DISTRESS OBSERVED. RR EVEN & UNLABORED ON 2L. SR 62 ON TELE. IV TO R HAND SL. BED LOCKED AND LOWERED, CL IN REACH. ASSESSMENT COMPLETE. WILL CONT POC.
[2020-08-18 02:06] LABS: TROPONIN-I < 0.017 ng/mL (0.000-0.060)
[2020-08-18 07:22] LABS: BASOPHILS 0.1 % (0-2); EOSINOPHILS 0 % (0-7); HEMATOCRIT 37.5 % (42.0-54.0); HEMOGLOBIN 12.5 g/dL (13.5-17.5); LYMPHOCYTES 9.5 % (15-50); MCHC 33.2 g/dL (31.0-37.0); MCV 93.3 fL (80.0-100.0); MEAN PLATELET VOLUME 9.5 fL (7.4-10.4); MONOCYTES 1.6 % (2-11); NEUTROPHILS 88.8 % (40-80); PLATELET COUNT 198 10x3/uL (130-400); RBC 4.02 10x6/uL (4.20-6.10); RDW 13.5 % (11.5-14.5); WBC 8.6 10x3/uL (4.8-10.8)
[2020-08-18 07:42] LABS: ALBUMIN 3.2 g/dL (3.4-5.0); ALKALINE PHOSPHATASE 75 U/L (30-120); ALT (SGPT) 16 U/L (10-68); CALC OSMOLALITY 289 mosm/kg (275-300); CALCIUM 9.2 mg/dL (8.5-10.1); CARBON DIOXIDE 28.5 mmol/L (21.0-32.0); CHLORIDE - SERUM 103 mmol/L (98-107); CKMB 0.3 U/L (0.0-3.6); CREATINE KINASE 70 UL (21-232); CREATININE - SERUM 1.3 mg/dL (0.6-1.3); GLUCOSE 222 mg/dL (74-106); MAGNESIUM - SERUM 2.1 mg/dL (1.8-2.4); PHOSPHOROUS 2.6 mg/dL (2.5-4.9); POTASSIUM - SERUM 4.2 mmol/L (3.5-5.1); PROTEIN - SERUM 7.7 g/dL (6.4-8.2); SODIUM 137 mmol/L (136-145); TROPONIN-I < 0.017 ng/mL (0.000-0.060); UREA NITROGEN 38 mg/dL (7-18); eGFR NON AFRICAN AMERICAN 57 mL/min (90-120)
--- NOTE | 2020-08-18 08:25 | NUR ---
PATIENT AAOX4, RESP EVEN AND NON LABORED, NO S/S OF DISTRESS, MEDICATIONS ADMINISTERED WITH NO COMPLICATIONS, NO FURTHER NEEDS, CLIR, BLP
[2020-08-18 10:29] LABS: BILIRUBIN NEGATIVE (NEGATIVE); KETONE 1+ mg/dL (NEGATIVE); NITRITE NEGATIVE (NEGATIVE); UROBILINOGEN NORMAL mg/dL (< 2)
[2020-08-18 10:30] LABS: SQUAMOUS EPITHELIAL 0-5 HPF (0-4); WHITE CELLS - URINE 0-5 HPF (0-1)
[2020-08-18 13:09] LABS: CKMB 0.6 U/L (0.0-3.6); CREATINE KINASE 76 UL (21-232); TROPONIN-I < 0.017 ng/mL (0.000-0.060)
[2020-08-19] VITALS (7 sets, daily range): BP systolic 95–155; BP diastolic 53–81
--- NOTE | 2020-08-19 02:19 | NUR ---
IV INFILTRATED IN RIGHT HAND REMOVED INTACTED. NEW IV PLACE IN RIGHT WRIST ON SECOND ATTEMPT. NO COMPLICATIONS. SOLU+MEDROL 08/18 MIDNIGHT DOSE NOT GIVEN DUE TO PT NOT HAVING AN IV ACCESS.
--- NOTE | 2020-08-19 02:21 | NUR ---
RESP CULTURE UNABLE TO COLLECT PT STATES HE IS NOT COUGHING MUCH AT ALL. PT WILL TRY TO GET SOME SAMPLE IF POSSIBLE WILL LET AM NURSE KNOW.
--- NOTE | 2020-08-19 03:10 | NUR ---
I have reviewed this patient and I concur with the Shift Assessment completed by the Licensed Practical Nurse today this shift.
[2020-08-19 07:01] LABS: BASOPHILS 0.1 % (0-2); EOSINOPHILS 0 % (0-7); HEMATOCRIT 37.9 % (42.0-54.0); HEMOGLOBIN 12.5 g/dL (13.5-17.5); LYMPHOCYTES 7.5 % (15-50); MCH 30.7 pg (26.0-34.0); MCHC 32.9 g/dL (31.0-37.0); MCV 93.2 fL (80.0-100.0); MEAN PLATELET VOLUME 9.9 fL (7.4-10.4); MONOCYTES 3.3 % (2-11); NEUTROPHILS 89.1 % (40-80); RBC 4.07 10x6/uL (4.20-6.10); RDW 13.6 % (11.5-14.5)
[2020-08-19 07:05] LABS: PLATELET COUNT 256 10x3/uL (130-400); WBC 14.5 10x3/uL (4.8-10.8)
--- NOTE | 2020-08-19 07:17 | NUR ---
PT LYING IN BED WITH HOB ELEVATED 30 DEGREES. RESP EVEN AND UNLABORED. O2 [address]PM [address] NC IN PL[address] AAO X4. DENIES NEEDS AT THIS TIME. CLIR. BED IN LOWEST POSITION. SIDE RAILS X2
[2020-08-19 07:41] LABS: ALBUMIN 3.2 g/dL (3.4-5.0); BILIRUBIN - TOTAL 0.44 mg/dL (0.2-1.3); CALCIUM 9.1 mg/dL (8.5-10.1); CARBON DIOXIDE 30.2 mmol/L (21.0-32.0); CREATININE - SERUM 1.4 mg/dL (0.6-1.3); MAGNESIUM - SERUM 2.2 mg/dL (1.8-2.4); POTASSIUM - SERUM 4.2 mmol/L (3.5-5.1)
--- NOTE | 2020-08-19 13:54 | NUR ---
I have reviewed this patient and I concur with the Shift Assessment completed by the Licensed Practical Nurse today this shift.
--- NOTE | 2020-08-19 23:35 | NUR ---
INITIAL ROUNDS COMPLETED AT 1920 HRS. PT DENIED ANY DISCOMFORT. ASSESSMENT COMPLETED AT 2009 HRS. VSS. CAF PER CMHR 88. ALERT AND ORIENTED TO PERSON, PLACE AND TIME. WHITE. PALPABLE PERIPHERAL PULSES. IV TOR AHND WITH IVAB INFUSING. O2 2LNC. LUNGS DIMINISHED IN BASES BILAT. PM FSBS 219. PT COVERED PER S/S. PM MEDS GIVEN. PT CURRENTLY WATCHING TV. CALL LIGHT WITHIN REACH.
--- NOTE | 2020-08-20 01:12 | NUR ---
PT RESTING WITH EYES CLOSED. RESP EVEN AND REGULAR. CALL LIGHT WITHIN REACH.
--- NOTE | 2020-08-20 03:38 | NUR ---
PT RESTING WITH EYES CLOSED. RESP EVEN AND REGULAR. CALL LIGHT WITHIN REACH.
--- NOTE | 2020-08-20 03:57 | NUR ---
RENAL SERVICES REPAGED.
[2020-08-20 05:07] VITALS: BP 142/73
[2020-08-20 05:44] LABS: BASOPHILS 0.2 % (0-2); EOSINOPHILS 1.1 % (0-7); HEMATOCRIT 41.5 % (42.0-54.0); HEMOGLOBIN 13.6 g/dL (13.5-17.5); LYMPHOCYTES 22.3 % (15-50); MCH 30.4 pg (26.0-34.0); MCHC 32.8 g/dL (31.0-37.0); MCV 92.7 fL (80.0-100.0); MEAN PLATELET VOLUME 9.6 fL (7.4-10.4); MONOCYTES 7.2 % (2-11); NEUTROPHILS 69.2 % (40-80); PLATELET COUNT 278 10x3/uL (130-400); RBC 4.47 10x6/uL (4.20-6.10); RDW 13.4 % (11.5-14.5); WBC 12.9 10x3/uL (4.8-10.8)
[2020-08-20 05:57] LABS: ALBUMIN 3.1 g/dL (3.4-5.0); ANION GAP 9.8 mmol/L (8-16); BILIRUBIN - TOTAL 0.36 mg/dL (0.2-1.3); CALCIUM 9.2 mg/dL (8.5-10.1); CARBON DIOXIDE 31.8 mmol/L (21.0-32.0); CREATININE - SERUM 1.1 mg/dL (0.6-1.3); MAGNESIUM - SERUM 1.9 mg/dL (1.8-2.4); PHOSPHOROUS 2.9 mg/dL (2.5-4.9); POTASSIUM - SERUM 3.6 mmol/L (3.5-5.1); PROTEIN - SERUM 7.4 g/dL (6.4-8.2)
--- NOTE | 2020-08-20 06:37 | NUR ---
VSS THROUGHOUT NIGHT. CAF PER CM. PT DENIED ANY DISCOMFORT. AM FSBS 154. 4 UNITS INSULIN GIVEN SUB-Q TO UPPER R ARM. NEEDS MET; WILL CONTINUE TO MONITOR.
--- NOTE | 2020-08-20 07:00 | NUR ---
RECEIVED REPORT. ASSUMED CARE OF PATIENT. RESTING IN BED WITH EYES OPEN. PATIENT IN NO DISTRESS, STATES HE HOPES TO GO HOME TODAY. WHITE BOARD UPDATED, BEDSIDE SHIFT REPORT COMPLETE. NO DISTRESS. CALL LIGHT WITHIN REACH.
[2020-08-20 07:59] VITALS: BP 140/77
--- NOTE | 2020-08-20 08:42 | NUR ---
MEDICATED FOR PAIN AT THIS TIME. NO DISTRESS.
[2020-08-20] MEDS ORDERED: FEXOFENADINE HC60 MG PO (09:40)
[2020-08-20] MEDS ORDERED: FLOMAX0.4 MG PO (09:40)
[2020-08-20] MEDS ORDERED: MUCINEX600 MG PO (09:41)
[2020-08-20] MEDS ORDERED: FUROSEMIDE20 MG PO (09:42)
[2020-08-20] MEDS ORDERED: LYRICA25 MG PO (09:42)
[2020-08-20] MEDS ORDERED: AZITHROMYCIN500 MG PO (09:43)
[2020-08-20] MEDS ORDERED: OMNICEF300 MG PO (09:43)
[2020-08-20] MEDS ORDERED: PERFOROMIS20 MCG/21 INH (09:43)
[2020-08-20] MEDS ORDERED: PULMICORT0.5 MG/21 UPD (09:44)
--- NOTE | 2020-08-20 10:11 | MORECARE ---
CASE MANAGEMENT DISCHARGE SUMMARY PATIENT: JOY REYES UNIT: [id number] ADM DATE: 08/17/20 AGE: 75 : 45 SEX: M ROOM/BED: D.2104 AUTHOR: QUENTIN CALVERT PHYSICIAN: REFERRING PHYSICIAN: PIYUSH LORENZO MD DATE OF SERVICE: 08/20/20 Case Management Discharge Planning Summary COMMENTS ENTERED DATE: 08/20/20 10:10 CT COMMENT TYPE: Discharge Planning REVIEWER: Ronald León CM met with patient to complete DC plan and to evaluate needs. Patient lives independently with his spouse, Dulce Reyes, . Patient stated that his home is safe and has electricity and running water. Patient stated that he has no mobility issues and is able to enter and move about his home with ease. Patient stated that he has no problems paying for medications and he fills his medications at [facility] [address] Patient stated that his primary care physician is Dr. Liao. At discharge, the patient plans to return home and feels this is a safe discharge. CM discussed availability of home health, rehab services, and medical equipment. Patient declined HHS, SNF, and IPR, but stated that should he need oxygen he chooses [facility]. E[facility] for [facility] and [facility] for Home Health signed and placed in chart. Patient voiced no other needs at this time and is satisfied with DC plan. Transportation provider at discharge will be with his son, Rafael. DC IMM delivered, explained, signed by the patient, and placed in chart. Signed form also left with the patient. CM will continue to follow and will assist as needed with dc plans/needs. DCP REVIEW SUMMARY ANTICIPATED D/C DATE: 08/20/2020 EXPECTED LOS : 3 CASE STATUS: DCP Initiated INITIAL REVIEW: 08/17/2020 INITIAL REVIEWER: Ronald León FINAL DISCHARGE DISPOSITION: : FINAL REVIEWER: FINAL REVIEW DATE: DCP Focus Questions & Answers DCP Evaluation QUESTION: ANSWER Patient gives permission to discuss discharge plans with: (name, relationship and number) : spouse, Dulce Reyes, Patient's ability to cope with chronic illness : d. No chronic illness Patient's current cognitive status: : *Oriented to person, place, situation, time and present Family / Caregiver's ability to cope with chronic illness: : a. Adequate (ability to meet patient's medical needs, ensures patient attends medical appts.) Patient and/or caregiver agree upon recommended discharge plan? : Yes Physical Status: : Independent with ADL's Family / Caregiver's ability to cope with chronic illness: : a. Adequate (ability to meet patient's medical needs, ensures patient attends medical appts.) Functional screen assessment: : Basic needs can adequately be met by self Does the patient have the ability to pay for or attain post discharge needs / services? : Yes Living Arrangements: : Home with Spouse/Significant Other Is there a likelihood that the patient will require additional services to return to the preadmission environment? : No Equipment needed for post hospitalization: : None Baseline cognitive status: : *Oriented to person, place, situation, time and present Patient with capacity for self-care or can be cared for in same environment as prior to hospitalization? : Yes Physical environment modification needed / anticipated for discharge: : No Medication Management: : Patient states can afford medications Medication Management: : Patient states can read and understand medication labels Pharmacy name(s): : [facility] on [address] Does Patient have transportation to get home and to follow-up medical appointments when discharged from the hospital? : Yes Would patient like to participate in any Care Coordination programs (if applicable): : Not applicable Does the patient have electricity at home? : Yes Does the patient have running water in their house? : Yes Equipment in use: : None Mental health screen: : No mental health history DCP Re-evaluation QUESTION: ANSWER Would patient like to participate in any Care Coordination programs (if applicable): : Not applicable PATIENT: JOY REYES ENCOUNTER: [id number] MEDICAL RECORD#: [id number] ADMISSION DATE: 08/17/2020 DISCHARGE DATE: ATTENDING MD: PIYUSH WHITFIELD : AGE: 75 MARITAL STATUS: M DC PLAN ID: [id number] FACILITY: [facility] PRINTED ON: 08/20/20 10:11 CT All edits/amendments must be made on the electronic document DICTATION DATE: 08/20/20 1011 ABRADING MACHINE TENDER: VERONIQUE 08/20/20 1011 RPT#: [id number] DC DATE: STATUS: ADM IN [facility] [address] [place] [address] END OF REPORT
--- NOTE | 2020-08-20 10:45 | NUR ---
20 GAUGE IV REMOVED FROM RIGHT HAND, CATHETER TIP INTACT. NO BLEEDING FROM SITE. 2X2 GAUZE APPLIED AND SECURED WITH BANDAID. PATIENT TOLERATED IV REMOVAL WELL. TELEMETRY REMOVED AND RETURNED TO ICU NIGHT COURT MAGISTRATE VIA YONATAN CONNOLLY AT THIS TIME.
--- NOTE | 2020-08-20 11:45 | NUR ---
AWAITING ON [facility] TO DELIVER NEBULIZER MACHINE.
--- NOTE | 2020-08-20 12:43 | NUR ---
DISCHARGE INSTRUCTIONS PROVIDED TO PATIENT. PATIENT VERBALIZED UNDERSTANDING OF ALL INSTURCTIONS PROVIDED. PATIENT LEFT UNIT VIA WHEELCHAIR IN STABLE CONDITION WITH ALL PERSONAL BELONIGINGS. PATIENT FAMILY TOOK NEBULIZER MACHINE TO CAR PRIOR TO PATIENT LEAVING UNIT. NO ACUTE DISTRESS. PATIENT DISCHARGED TO HOME WITH FAMILY.
--- NOTE | 2020-08-20 19:45 | MORECARE ---
CASE MANAGEMENT DISCHARGE SUMMARY PATIENT: JOY REYES UNIT: [id number] ADM DATE: 08/17/20 AGE: 75 : 45 SEX: M ROOM/BED: D.2104 AUTHOR: QUENTIN CALVERT PHYSICIAN: REFERRING PHYSICIAN: PIYUSH LORENZO MD DATE OF SERVICE: 08/20/20 Case Management Discharge Planning Summary COMMENTS ENTERED DATE: 08/20/20 10:10 CT COMMENT TYPE: Discharge Planning REVIEWER: Ronald León CM met with patient to complete DC plan and to evaluate needs. Patient lives independently with his spouse, Dulce Reyes, . Patient stated that his home is safe and has electricity and running water. Patient stated that he has no mobility issues and is able to enter and move about his home with ease. Patient stated that he has no problems paying for medications and he fills his medications at [facility] on [address]. Patient stated that his primary care physician is Dr. Liao. At discharge, the patient plans to return home and feels this is a safe discharge. CM discussed availability of home health, rehab services, and medical equipment. Patient declined HHS, SNF, and IPR, but stated that should he need oxygen he chooses [facility]. ELLYN for [facility] and [facility] for [facility] signed and placed in chart. Patient voiced no other needs at this time and is satisfied with DC plan. Transportation provider at discharge will be with his son, Rafael. DC IMM delivered, explained, signed by the patient, and placed in chart. Signed form also left with the patient. CM will continue to follow and will assist as needed with dc plans/needs. DCP REVIEW SUMMARY ANTICIPATED D/C DATE: 08/20/2020 EXPECTED LOS : 3 CASE STATUS: DCP Initiated INITIAL REVIEW: 08/17/2020 INITIAL REVIEWER: Ronald León FINAL DISCHARGE DISPOSITION: : FINAL REVIEWER: FINAL REVIEW DATE: DCP Focus Questions & Answers DCP Evaluation QUESTION: ANSWER Patient gives permission to discuss discharge plans with: (name, relationship and number) : spouse, Dulce Reyes, Patient's ability to cope with chronic illness : d. No chronic illness Patient's current cognitive status: : *Oriented to person, place, situation, time and present Family / Caregiver's ability to cope with chronic illness: : a. Adequate (ability to meet patient's medical needs, ensures patient attends medical appts.) Patient and/or caregiver agree upon recommended discharge plan? : Yes Physical Status: : Independent with ADL's Family / Caregiver's ability to cope with chronic illness: : a. Adequate (ability to meet patient's medical needs, ensures patient attends medical appts.) Functional screen assessment: : Basic needs can adequately be met by self Does the patient have the ability to pay for or attain post discharge needs / services? : Yes Living Arrangements: : Home with Spouse/Significant Other Is there a likelihood that the patient will require additional services to return to the preadmission environment? : No Equipment needed for post hospitalization: : None Baseline cognitive status: : *Oriented to person, place, situation, time and present Patient with capacity for self-care or can be cared for in same environment as prior to hospitalization? : Yes Physical environment modification needed / anticipated for discharge: : No Medication Management: : Patient states can afford medications Medication Management: : Patient states can read and understand medication labels Pharmacy name(s): : [facility] on [address] Does Patient have transportation to get home and to follow-up medical appointments when discharged from the hospital? : Yes Would patient like to participate in any Care Coordination programs (if applicable): : Not applicable Does the patient have electricity at home? : Yes Does the patient have running water in their house? : Yes Equipment in use: : None Mental health screen: : No mental health history DCP Re-evaluation QUESTION: ANSWER Would patient like to participate in any Care Coordination programs (if applicable): : Not applicable PATIENT: JOY REYES ENCOUNTER: [id number] MEDICAL RECORD#: [id number] ADMISSION DATE: 08/17/2020 DISCHARGE DATE: 08/20/2020 ATTENDING MD: PIYUSH WHITFIELD : AGE: 75 MARITAL STATUS: M DC PLAN ID: [id number] FACILITY: [facility] PRINTED ON: 08/20/20 19:45 CT All edits/amendments must be made on the electronic document DICTATION DATE: 08/20/201944 CONTINUITY WRITER: VERONIQUE 08/20/201944 RPT#: [id number] DC DATE:08/20/20 STATUS: DIS IN [facility] [address] [place] [address] END OF REPORT
[2020-08-22] MEDS ORDERED: PERFOROMIS20 MCG/21 INH ×2 (17:42→18:21)
--- NOTE | 2020-08-23 13:22 | MORECARE ---
CASE MANAGEMENT DISCHARGE SUMMARY PATIENT: JOY REYES UNIT: [id number] ADM DATE: 08/17/20 AGE: 75 : 45 SEX: M ROOM/BED: D.2103 AUTHOR: QUENTIN CALVERT PHYSICIAN: REFERRING PHYSICIAN: PIYUSH LORENZO MD DATE OF SERVICE: 08/23/20 Case Management Discharge Planning Summary COMMENTS ENTERED DATE: 08/20/20 10:10 CT COMMENT TYPE: Discharge Planning REVIEWER: Ronald León CM met with patient to complete DC plan and to evaluate needs. Patient lives independently with his spouse, Dulce Reyes, . Patient stated that his home is safe and has electricity and running water. Patient stated that he has no mobility issues and is able to enter and move about his home with ease. Patient stated that he has no problems paying for medications and he fills his medications at [facility] on [address]. Patient stated that his primary care physician is Dr. Liao. At discharge, the patient plans to return home and feels this is a safe discharge. CM discussed availability of home health, rehab services, and medical equipment. Patient declined HHS, SNF, and IPR, but stated that should he need oxygen he chooses [facility]. ELLYN for [facility] and [facility] signed and placed in chart. Patient voiced no other needs at this time and is satisfied with DC plan. Transportation provider at discharge will be with his son, Rafael. DC IMM delivered, explained, signed by the patient, and placed in chart. Signed form also left with the patient. CM will continue to follow and will assist as needed with dc plans/needs. DCP REVIEW SUMMARY ANTICIPATED D/C DATE: 08/20/2020 EXPECTED LOS : 3 CASE STATUS: DCP Complete INITIAL REVIEW: 08/17/2020 INITIAL REVIEWER: Ronald León FINAL DISCHARGE DISPOSITION: 01 : Home or Self Care (Routine Discharge) FINAL REVIEWER: Ronald León FINAL REVIEW DATE: 08/23/2020 DCP Focus Questions & Answers DCP Evaluation QUESTION: ANSWER Patient gives permission to discuss discharge plans with: (name, relationship and number) : spouse, Dulce Reyes, Patient's ability to cope with chronic illness : d. No chronic illness Patient's current cognitive status: : *Oriented to person, place, situation, time and present Family / Caregiver's ability to cope with chronic illness: : a. Adequate (ability to meet patient's medical needs, ensures patient attends medical appts.) Patient and/or caregiver agree upon recommended discharge plan? : Yes Physical Status: : Independent with ADL's Family / Caregiver's ability to cope with chronic illness: : a. Adequate (ability to meet patient's medical needs, ensures patient attends medical appts.) Functional screen assessment: : Basic needs can adequately be met by self Does the patient have the ability to pay for or attain post discharge needs / services? : Yes Living Arrangements: : Home with Spouse/Significant Other Is there a likelihood that the patient will require additional services to return to the preadmission environment? : No Equipment needed for post hospitalization: : None Baseline cognitive status: : *Oriented to person, place, situation, time and present Patient with capacity for self-care or can be cared for in same environment as prior to hospitalization? : Yes Physical environment modification needed / anticipated for discharge: : No Medication Management: : Patient states can afford medications Medication Management: : Patient states can read and understand medication labels Pharmacy name(s): : [facility] on [address] Does Patient have transportation to get home and to follow-up medical appointments when discharged from the hospital? : Yes Would patient like to participate in any Care Coordination programs (if applicable): : Not applicable Does the patient have electricity at home? : Yes Does the patient have running water in their house? : Yes Equipment in use: : None Mental health screen: : No mental health history DCP Re-evaluation QUESTION: ANSWER Would patient like to participate in any Care Coordination programs (if applicable): : Not applicable PATIENT: JOY REYES ENCOUNTER: [id number] MEDICAL RECORD#: [id number] ADMISSION DATE: 08/17/2020 DISCHARGE DATE: 08/20/2020 ATTENDING MD: PIYUSH WHITFIELD : AGE: 75 MARITAL STATUS: M DC PLAN ID: [id number] FACILITY: [facility] PRINTED ON: 08/23/20 13:22 CT All edits/amendments must be made on the electronic document DICTATION DATE: 08/23/201321 POTLINE MONITOR: VERONIQUE 08/23/20 132 RPT#: [id number] [place] DATE:08/20/20 STATUS: DIS IN [facility] [address] [place] [address] END OF REPORT
== END 2020-08-20 13:18 | disposition home or self-care (01) | DRG 193 ==
LOC: D.ER 19:04 → D.M2 19:14 → D.EDHOLD 19:14 → D.M2 08-18 00:39
PROVIDERS: ADMIT Emergency Medicine; ATTEND Emergency Medicine
DX: J18.9 Pneumonia, unspecified organism (principal); I50.31 Acute diastolic (congestive) heart failure; J96.01 Acute respiratory failure with hypoxia; N17.9 Acute kidney failure, unspecified; I11.0 Hypertensive heart disease with heart failure; E11.9 Type 2 diabetes mellitus without complications; I48.91 Unspecified atrial fibrillation; G89.29 Other chronic pain; Z86.16 Personal history of COVID-19; Z85.46 Personal history of malignant neoplasm of prostate; E78.5 Hyperlipidemia, unspecified